=== PATIENT | male | born 1950 | race Caucasian/White ===

== ENCOUNTER 2018-01-07 20:28 | Emergency (ER) | payer MEDICARE ==
[~2018-01-07] VITALS: Ht 180.3 cm; Wt 102.8 kg
[~2018-01-07 20:28] MED LIST: CIPR500T2 PO; FURO1TAB93 PO; LEVO.05 PO; METO25 PO; PARO10TA PO
[2018-01-07 20:40] VITALS: BP 175/83; PULSE 63; RESP 20; TEMP 97.8; O2SAT 95
--- NOTE | 2018-01-07 21:09 | PD ---
HPI Chief Complaint: Fall Time Seen by Provider: 21:01 Travel History International Travel<30 days: No Contact w/Intl Traveler<30days: No Traveled to known affect area: No History of Present Illness HPI Patient presents after a fall. States he was walking his dog with his cane when his cane slid forward and he fell. States he was able to break his fall with his right arm since he does not have function of his left but did hit his head forehead on a wooden floor. Denies any loss of consciousness. Denies any headache. Denies any neck pain. Denies any visual changes. Tetanus up-to- date. History of previous traumatic brain injury. PFSH Past Medical History Blood Disorders: No Cancer: Yes (BLADDER CANCER) Cardiovascular Problems: Yes Diabetes: No Endocrine: No Glaucoma: No Genitourinary: Yes (HYDRONEPHROSIS, RECENT UTI) Hepatitis: No Hiatal Hernia: No Hypertension: Yes Immune Disorder: No Musculoskeletal: Yes (L ARM CONTRACTED S/P USP, DECREASED MVMNT TO LLE) Neurologic: Yes (TBI S/P USP 9 YRS AGO) Reproductive: No Respiratory: No Thyroid Disease: Yes Past Surgical History Genitourinary Surgery: Yes (UMB. HERNIA REPAIR. PROSTATE AND BLADDER SURGERY 4 WKS AGO. 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) Tobacco Use: No Substance Use: No Allergies-Medications (Allergen,Severity, Reaction): Coded Allergies: No Known Allergies (Verified Adverse Reaction, Unknown, 01/07/18) Reported Meds & Prescriptions Reported Meds & Active Scripts Active Reported B12 (Cyanocobalamin) 1,000 Mcg Tab Multiple Vitamin 1 Tab 1 Tab PO DAILY Metoprolol Tartrate 50 Mg Tab 50 Mg PO BID Levothyroxine (Levothyroxine Sodium) 50 Mcg Tab 50 Mcg PO DAILY [place]-3 Fish Oil/Vitamin (Fish Oil-Cholecalciferol) 1,000-1,000 Mg Cap 1 Cap PO DAILY Coq-10 Tr (Coenzyme Q10 (Ubidecarenone)) 100 Mg Cap Aspirin 81 Mg Chew 81 Mg CHEW BID Review of Systems General / Constitutional: No: Fever Eyes: No: Visual changes HENT: No: Headaches Cardiovascular: No: Chest Pain or Discomfort Respiratory: No: Shortness of Breath Gastrointestinal: No: Abdominal Pain Genitourinary: No: Dysuria Musculoskeletal: No: Pain Skin: No Rash Neurologic: No: Weakness Psychiatric: No: Depression Endocrine: No: Polydipsia Hematologic/Lymphatic: No: Easy Bruising Physical Exam Narrative GENERAL: Well-nourished, well-developed patient. SKIN: Focused skin assessment warm/dry. HEAD: Normocephalic. 1.5 cm laceration to the left upper forehead, bleeding controlled no other hematomas or lacerations noted Examination of the cervical spine reveals no midline tenderness Examination of the right arm reveals good range of motion without pain erythema edema or bony deformity Left arm is contracted and not usable secondary to previous injury, no new erythema edema or bony deformity EYES: No scleral icterus. No injection or drainage. Pupils equal round reactive light and accommodation NECK: Supple, trachea midline. No JVD or lymphadenopathy. CARDIOVASCULAR: Regular rate and rhythm without murmurs, gallops, or rubs. RESPIRATORY: Breath sounds equal bilaterally. No accessory muscle use. GASTROINTESTINAL: Abdomen soft, non-tender, nondistended. MUSCULOSKELETAL: No cyanosis, or edema. BACK: Nontender without obvious deformity. No CVA tenderness. Data Data Last Documented VS Vital Signs Date Time Temp Pulse Resp B/P (MAP) Pulse Ox O2 Delivery O2 Flow Rate FiO2 01/07/18 22:34 58 18 196/78 (117) 94 Room Air 01/07/18 20:40 97.8 Orders Orders Lidocai-Epi 1%-1:100,000 Inj (Xylocaine- (01/07/18 21:15) Metoprolol Tartrate (Lopressor) (01/07/18 21:45) MDM Medical Decision Making Medical Screen Exam Complete: Yes Emergency Medical Condition: Yes Differential Diagnosis Forehead lack, concussion, acute intracranial process, cervical fracture Narrative Course Assessment plan discussed with son and [id number] at bedside. Son made it very clear that he is a clinician and has power of family law attorney to make decisions for his father. Refuses a [place] collar and CT of the head/neck at this time. Requesting laceration repair only. Patient's blood pressure continued to rise. On further questioning patient did not take his evening blood pressure medication, metoprolol provided without improvement of blood pressure. Discussed risks and benefits of not proceeding with CT of the head and neck, power of family law attorney understands and wishes to proceed without this imaging. Discussed a desire to see a more normalized blood pressure prior to discharge, power of family law attorney insisting on departure. Procedures Procedure Narrative LACERATION LOCATION: Left upper forehead LENGTH: 1.5 cm NUMBER OF STITCHES/ALEX: 3 interrupted REPAIR: The area of the laceration was prepped with Betadine and sterilely draped. The laceration was infiltrated with 2 cc 1% lidocaine with epinephrine. The wound was copiously irrigated and explored without evidence of foreign body, tendon injury or neurovascular injury. The wound was closed using 5-0 Prolene. This was a single layer repair. A sterile dressing was applied. The patient was advised to keep the dressing clean and dry. Patient tolerated the procedure well. Diagnosis Primary Impression: Forehead laceration Qualified Codes: S01.81XA - Laceration without foreign body of other part of head, initial encounter Additional Impressions: Forehead contusion Qualified Codes: S00.83XA - Contusion of other part of head, initial encounter Hypertensive urgency Patient Instructions: General Instructions Additional Instructions: Motrin or Tylenol for pain, encouraged general wound care with antibacterial soap and water. Follow-up with PCP. Return to emergency room with any onset of new symptoms. Med/Other Pt SpecificInfo: No Meds Exist/No RX given Disposition: 01 DISCHARGE HOME Condition: Good Barry Goss MD January 07, 2018 21:09
[2018-01-07] MEDS ORDERED: LIDOCAINE 1%/EPINEPHrine 1:100,000 SOLN 20 ML VIAL INFIL ONE (21:15)
[2018-01-07] MEDS ORDERED: ASPI-516 CHEW (21:24)
[2018-01-07] MEDS ORDERED: METO50TA PO (21:24)
[2018-01-07] MEDS ORDERED: MULTTAB67 PO (21:24)
[2018-01-07] MEDS ORDERED: OMEGCAP PO (21:24)
[2018-01-07] MEDS ORDERED: CYAN1TAB24 (21:24)
[2018-01-07] MEDS ORDERED: COQ-100C5 (21:24)
[2018-01-07] MEDS ORDERED: LEVO50TA4 PO (21:24)
[2018-01-07 21:42] VITALS: BP 196/76; PULSE 76; RESP 16; O2SAT 92
[2018-01-07] MEDS ORDERED: METOPROLOL TARTRATE 50 MG TAB PO ONE (21:45)
[2018-01-07 22:34] VITALS: BP 196/78; PULSE 58; RESP 18; O2SAT 94
[2018-01-07 23:01] VITALS: BP 202/74; PULSE 62; RESP 18; O2SAT 96
== END 2018-01-07 23:33 | disposition home or self-care (01) ==
LOC: PHED 20:28
DX: S01.81XA Laceration without foreign body of other part of head, initial encounter (principal); Z85.51 Personal history of malignant neoplasm of bladder; I10 Essential (primary) hypertension; Y93.K1 Activity, walking an animal; W19.XXXA Unspecified fall, initial encounter
CPT/HCPCS: 12011